=== PATIENT | female | born 1940 | race Caucasian/White ===

== ENCOUNTER 2018-08-15 12:59 | Emergency (ER) | payer MEDICARE, OTHER ==
--- OUTSIDE RECORDS SUMMARY | 2018-08-15 13:29 | XMS REPORT ---
:1940 External Reference #:[id number] Author Organization [facility] Address [address] [address] Phone [phone] Care Team Providers Name Role Phone Marilu Black, RN MS SOFTWARE QUALITY TEST ENGINEER Care Team Information Car Dropper Unavailable Payers Type Date Identification Numbers Payment Provider Subscriber Medicare Primary Effective: Policy Number: Medicare Mallika Mathews 2010 [id number] Group Name: [facility] [address] PayID: [id number] [place] [address] [place] Policy Number: [id number] [place] Mathews PayID: [id number] [place] [address] Problems Date Description Provider Status Onset: 07/21/2012 Benign essential hypertension Marilu Black, RN MS SOFTWARE QUALITY TEST ENGINEER Active Social History Type Date Description Comments Marital Status ETOH Use Denies alcohol use Smoking Patient is a former smoker 30 YRS X 2PPD, QUIT 20 YRS AGO Daily Caffeine Consumes on average 3 cups of tea per day Daily Caffeine Consumes on average 1 cup of coffee per day General Hx Text 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 Allergies, Adverse Reactions, Alerts Date Description Reaction Status Severity Comments 07/21/2012 Penicillin active 07/21/2012 Compazine active 07/21/2012 Morphine active 07/21/2012 Sulfa Drugs active 04/05/2015 Azithromycin Urticaria active 08/04/2018 Olmesartan Medoxomil active Swelling, Electric Shocks In Whole Body Medications Medication Date Status Form Strength Qnty SIG Indications Ordering Provider Lorazepam 08/04 Active Tablets 0.5mg 120ta 1/2-1 tab F41.1 Sofia Scarlett bs every 6-8 Marilu hours dano Alcala RN MS needed for SOFTWARE QUALITY TEST ENGINEER anxiety Hydrochlorothiazi 07/21 Active Tablets 12.5mg 30tab 1 tablet I10 Sofia de s every Marilu morning, Fredrick RN MS with SOFTWARE QUALITY TEST ENGINEER olmesartan 40mg Diazepam 06/24 Active Tablets 10mg 2tabs One Tab 1/2 HR Marilu Prior To KHUSHI Alcala MS MRI, March SOFTWARE QUALITY TEST ENGINEER Repeat In 4 HRS X 1 Hydrocodone-Aceta 06/16 Active Tablets 10-325mg 30tab take /2-1 M25.511 Sofia min s tablet by Marilu mouth up C, RN MS to 4 times SOFTWARE QUALITY TEST ENGINEER daily as needed maximum daily dose of 4 per day Triamcinolone 05/27 Active Cream 0.1% 30gm apply to L20.89 Sha Blackonide affected Marilu area twice Fredrick, RN MS a day for SOFTWARE QUALITY TEST ENGINEER 2 weeks Shingrix 05/27 Active Suspension 50mcg 1unit one Z00.00 Rec s injection Marilu as Fredrick RN MS directed SOFTWARE QUALITY TEST ENGINEER Ventolin HFA 05/08 Active Aerosol 108(90Bas 8gm use three J45.20 Sofia e) times a Marilu mcg/Act day as Fredrick RN MS needed SOFTWARE QUALITY TEST ENGINEER Livalo 03/27 Active Tablets 4mg 90tab 1 by mouth E78.0 Sofia s every day Marilu Alcala, RN MS SOFTWARE QUALITY TEST ENGINEER E78.2 Spirometer, 06/27/2015 Active use tid dx R06.02 Sofia, Incentive chronic Marilu Alcala, bronchitis RN MS SOFTWARE QUALITY TEST ENGINEER Baby Aspirin 04/27/2015 Active Chewtabs 81mg 1 by mouth Sofia, every day Marilu Alcala, RN MS SOFTWARE QUALITY TEST ENGINEER Epipen 2-Tray 09/04/2014 Active Solution 0.3m 2uni as needed [place], Auto-Inject g/0. ts Shea Benitez MD Zolpidem 08/18/2014 Active Tablets 10mg 30ta 1 every night F51.8 Sofia Tartrate bs at bedtime as Marilu Alcala, needed sleep RN MS SOFTWARE QUALITY TEST ENGINEER G47.00 Gabapentin 07/21/2012 Active Tablets 600mg 360tabs one by mouth M54.2 Marilu Black four times a Fredrick RN MS SOFTWARE QUALITY TEST ENGINEER day M54.5 TENS Unit 07/21/2012 Active Back/Neck M54.2 Marilu Black, RN MS SOFTWARE QUALITY TEST ENGINEER M54.5 Estradiol Active Patches 0.1mg/24HR 24units apply 1 Sofia, Biweek patch to Marilu skin 2 times C, RN MS per week for SOFTWARE QUALITY TEST ENGINEER menopausal symptoms Meloxicam Active Tablets 7.5mg 180tabs take 1 to 2 Sofia, tablets by Marilu mouth every C, RN MS day SOFTWARE QUALITY TEST ENGINEER Hyzaar 07/29/2018 - Hx Tablets 100-12.5mg 30tabs One Daily I Sofia, 08/04/2018 For Blood 1 Marilu Pressure 0 C, RN MS SOFTWARE QUALITY TEST ENGINEER Olmesartan 07/21/2018 - Hx Tablets 40-12.5mg 90tabs one tab I Sofia, Medoxomil/Hydroch 08/04/2018 daily by 1 Marilu lorothiazide mouth for 0 C, RN MS blood SOFTWARE QUALITY TEST ENGINEER pressure Myrbetriq 05/08/2017 - Hx Tablets 25mg One Daily N Sofia, 05/27/2018 ER 24HR 3 Marilu 9 C, RN MS . SOFTWARE QUALITY TEST ENGINEER 4 6 Levaquin 04/29/2016 - Hx Tablets 500mg 7tabs one by mouth Macaanni, 05/22/2016 every day x Shea 7 days - MD Emmanuel Cheratussin ac 04/29/2016 - Hx Solution 100-10mg/5M 473ml 5-10 R Macadam, 05/22/2016 L milliliters 0 Shea four times a 5 MD Emmanuel day as needed cough Omeprazole 03/27/2016 - Hx Capsules 40mg 90caps 1 by mouth Tay Black, 08/04/2018 DR every day 2 Marilu 1 C, RN MS . SOFTWARE QUALITY TEST ENGINEER 9 Lidoderm 03/27/2016 - Hx Patches 5% Sample apply patch Emmanuel Black, 05/08/2017 daily as 5 Marilu directed.galilea 4 C, RN MS ve on for 12 . SOFTWARE QUALITY TEST ENGINEER hours/day 6 only. may cut to fit tender area. Hydrocodone-Aceta 03/27/2016 - Hx Tablets 5-325mg 60tabs 1tab by Emmanuel Black minophen 05/08/2017 mouth every 5 Marilu 6 hours as 4 C, RN MS needed for . SOFTWARE QUALITY TEST ENGINEER pain 6 Cyclobenzaprine 03/27/2016 - Hx Tablets 10mg 45tabs take 1/2-1 M [place] , HCL 05/08/2017 tablet by 5 Marilu mouth every 4 C, RN MS night at . SOFTWARE QUALITY TEST ENGINEER bedtime as 6 needed for muscle spasm Spiriva Respimat 09/05/2015 - Hx Aerosol 2.5mcg/Act 3units 2 R Sofia, 09/05/2015 inhalations 0 Marilu daily as 6 C, RN MS instructed . SOFTWARE QUALITY TEST ENGINEER 0 2 Anoro Ellipta 09/05/2015 - Hx Aerosol 62.5-25mcg/ Sample one R [place], 05/22/2016 Inh inhalation 0 Marilu once daily 6 C, RN MS . SOFTWARE QUALITY TEST ENGINEER 0 2 Medical Marijuana 06/27/2015 - Hx 3 [place], 06/27/2015 3 Marilu 8 C, RN MS . SOFTWARE QUALITY TEST ENGINEER 4 Prilosec 06/27/2015 - Hx Capsules 20mg 30caps 1 by mouth 5 [place], 03/27/2016 DR every day 3 Marilu otc 0 C, RN MS . SOFTWARE QUALITY TEST ENGINEER 1 1 Breo Ellipta 06/27/2015 - Hx Aerosol 200-25mcg/I R [place], 05/22/2016 nh 0 Marilu 6 C, RN MS . SOFTWARE QUALITY TEST ENGINEER 0 2 Diovan HCT 04/27/2015 - Hx Tablets 160-12.5mg 90tabs 1 by mouth I Sofia, 05/08/2017 every day 1 Marilu 0 C, RN MS SOFTWARE QUALITY TEST ENGINEER Zofran 04/05/2015 - Hx Tablets 4mg 30tabs 1 tab by Jas, 04/27/2015 mouth q6hr Trinh as needed MD Lucretia Levaquin 04/05/2015 - Hx Tablets 500mg 7tabs one by mouth Jas, 04/27/2015 every day x Trinh 7 days - DC MD Miroslava Boykin Aware of potential long QT, had baseline EKG, pls go ahead to fill Guaifenesin-Codei 04/02/2015 - Hx Syrup 100-10mg/5M 150cc 10 cc qHS Jas ne 04/27/2015 L prn Trinh Boykin MD Breo Ellipta 04/02/2015 - Hx Aerosol 100-25mcg/I 1units free samples Jas, 04/27/2015 nh 1 puff once Trinh daily MD Lucretia Azithromycin 04/02/2015 - Hx Tablets 250mg 6tabs 2 tabs 4 Jas, 04/05/2015 (500mg) on 6 Trinh day 1, then 6 MD Lucretia 1 tab . (250mg) by 0 mouth on day 2-5. Prednisone 04/02/2015 - Hx Tablets 10mg 55tabs 5 tabs for 5 4 Jas, 04/27/2015 days, 3 tabs 6 Trinh for 5 days, 6 MD Lucretia 2 tabs for 5 . days 1 tab 0 for 5 days Epipen 2-Tray 08/25/2014 - Hx Solution 0.3mg/0.3ML 1Pak inject as [place], 08/25/2014 Auto-Inje dircted for Marilu ct severe C, RN MS allergy SOFTWARE QUALITY TEST ENGINEER Epinephrine 08/25/2014 - Hx Solution 0.15mg/0.15 1units inject as Sofia, 09/04/2014 Auto-Inje ML dircted for Marilu ct severe C, RN MS allergy SOFTWARE QUALITY TEST ENGINEER Carisoprodol 08/18/2014 - Hx Tablets 350mg 90tabs 1 by mouth 3 M Sofia , 03/27/2016 times daily 5 Marilu as needed 4 C, RN MS for muscle . SOFTWARE QUALITY TEST ENGINEER spasm 5 Bupropion HCL ER 08/18/2014 - Hx Tablets 300mg 90tabs 1 by mouth F Sofia (XL) 05/27/2018 ER 24HR every day 3 Marilu 3 C, RN MS . SOFTWARE QUALITY TEST ENGINEER 0 Naproxen 08/18/2014 - Hx Tablets 500mg 180tabs 1 by mouth M Sofia, 05/08/2017 twice a day 5 Marilu as needed 4 C, RN MS . SOFTWARE QUALITY TEST ENGINEER 5 Proair HFA 08/18/2014 - Hx Aerosol 108(90Base) 1units 2 [place], 05/08/2017 mcg/Act inhalations Marilu by mouth C, RN MS three times SOFTWARE QUALITY TEST ENGINEER a day as needed for wheezing Ambien 07/10/2014 - Hx Tablets 10mg 5tabs 1 qHS prn 5 Jas, 08/18/2014 days Trinh emergency MD Lucretia supply Zofran 06/16/2014 - Hx Tablets 8mg 4tabs for nausea 7 Sofia, 04/05/2015 every 6 8 Marilu hours 7 C, RN MS . SOFTWARE QUALITY TEST ENGINEER 0 2 Wellbutrin XL 07/07/2013 - Hx Tablets 300mg 90tabs take one 2 Sofia, 08/18/2014 ER 24HR tablet by 9 Marilu mouth every 6 KHUSHI Alcala MS morning . SOFTWARE QUALITY TEST ENGINEER 3 1 [place] 04/13/2013 - Hx Tablets 10-325mg 40tabs 1 po q6hrs 7 Sofia, 07/07/2013 prn pain 2 Marilu 4 KHUSHI Alcala MS . SOFTWARE QUALITY TEST ENGINEER 2 723.1 Vagifem 03/24/2013 - Hx Tablets 10mcg 24tabs 2x/week prn 616.10 [place], 06/27/2015 Marilu Alcala RN MS SOFTWARE QUALITY TEST ENGINEER Estrace 03/24/2013 - Hx Tablets 1mg Twice Weekly 616.10 [place], 03/24/2013 Marilu Alcala RN MS SOFTWARE QUALITY TEST ENGINEER Nucynta 03/24/2013 - Hx Tablets 75mg 120tabs one every 6 M54.5 [facility], 03/27/2016 hours as Shea Benitez MD needed pain . G89.4 Vivelle-Dot 03/24/2013 - Hx Patches 0.075mg/24HR 24units 1 patch 616.10 [place], 03/27/2016 Biweek 2x/week Marilu Alcala RN MS SOFTWARE QUALITY TEST ENGINEER Macrodantin 07/22/2012 - Hx Capsules 50mg 14caps one tab [place], 03/24/2013 bid for 7 Marilu days. KHUSHI Aclala MS SOFTWARE QUALITY TEST ENGINEER Diovan 07/21/2012 - Hx Tablets 160mg 90tabs 1 po qd 401.1 [place], 04/27/2015 Marilu Alcala RN MS SOFTWARE QUALITY TEST ENGINEER Lidoderm 07/21/2012 - Hx Patches 5% 30units 2 patch 724.2 [place], 03/27/2016 12 hrs on Marilu /12 hours KHUSHI Alcala MS off SOFTWARE QUALITY TEST ENGINEER Ambien 07/21/2012 - Hx Tablets 10mg 30tabs one by 307.42 Jas, 08/18/2014 mouth Trinh every MD Lucretia night at bedtime as needed sleep Soma 07/21/2012 - Hx Tablets 350mg 90tabs 1 by 724.2 [place], 08/18/2014 mouth 3 Shea Benitez MD daily as needed for muscle spasm Sibley 07/21/2012 - Hx Tablets 10-325mg 180tabs 1 po 724.09 [place], 03/24/2013 q6hrs prn Marilu pain KHUSHI Alcala MS SOFTWARE QUALITY TEST ENGINEER Livalo 07/21/2012 - Hx Tablets 1mg 90tabs 1 po qd E78.0 Sofia, 03/27/2016 Marilu Alcala RN MS SOFTWARE QUALITY TEST ENGINEER Celebrex 07/21/2012 - Hx Capsules 200mg 30caps 1 po qd 723.1 [place], 08/18/2014 Marilu Alcala RN MS SOFTWARE QUALITY TEST ENGINEER 724.2 Vivelle-Dot 07/21/2012 - Hx Patches 24units 1 patch 616.10 Sofia, 03/24/2013 Biweek 2x/week Marilu Alcala RN MS SOFTWARE QUALITY TEST ENGINEER Cipro 07/21/2012 - Hx Tablets 250m 14tabs 1 po bid x 599.0 Sofia, 07/22/2012 g 7 days Marilu Alcala RN MS SOFTWARE QUALITY TEST ENGINEER Valsartan-Hydroc - Hx Tablets 160- 90tabs 1 by mouth I10 Sofia, hlorothiazide 07/21/2018 12.5 every day mg KHUSHI Truong MS [facility] Immunizations CPT Code Status Date Vaccine Lot # [id number] Given 09/03/2016 Influenza Vac, 3 Yrs & Older, Quadrivalent, Split, [place] Use 84[address] Given 09/05/2015 Influenza Vac, 3 Yrs & Older, Quadrivalent, Split, [id number] Im Use 11918 Given 07/06/2015 Prevnar 13 Pneumococal Conjugate Vaccine 90871 Given 01/05/2013 Zoster (Zostavax) 09598 Given 09/03/2012 Pneumococcal 23 Immunization Adult Or Immunosuppressed Patient 68160 Given 09/03/2012 Tdap (Adacel) Ages 7 And Above Only Vital Signs Date Vital Result Comment 08/04/2018 Weight 142.12 lb Heart Rate 80 /min BP Systolic 120 mmHg BP Diastolic 70 mmHg 07/21/2018 Weight 145.25 lb Heart Rate 86 /min BP Systolic 138 mmHg BP Diastolic 82 mmHg Height 59 inches 4'11" BMI (Body Mass Index) 29.3 kg/m2 06/16/2018 Weight 140.00 lb BP Systolic Sitting 120 mmHg BP Diastolic Sitting 78 mmHg Height 59 inches 4'11" BMI (Body Mass Index) 28.3 kg/m2 05/27/2018 Weight 148.00 lb Heart Rate 70 /min BP Systolic 128 mmHg BP Diastolic 73 mmHg Height 59 inches 4'11" BMI (Body Mass Index) 29.9 kg/m2 05/08/2017 Weight 144.00 lb Heart Rate 89 /min BP Systolic 134 mmHg BP Diastolic 74 mmHg Height 59 inches 4'11" BMI (Body Mass Index) 29.1 kg/m2 Right Visual Acuity Distance 20/20 Left Visual Acuity Distance 20/20 05/22/2016 Weight 144.38 lb Heart Rate 86 /min BP Systolic 126 mmHg BP Diastolic 75 mmHg Height 60 inches 5'0" BMI (Body Mass Index) 28.2 kg/m2 04/29/2016 Body Temperature 97.9 F Weight 151.38 lb Heart Rate 91 /min BP Systolic 130 mmHg BP Diastolic 88 mmHg Height 60 inches 5'0" BMI (Body Mass Index) 29.6 kg/m2 Urine Dipstick - Blood TRACE Urine Dipstick - Protein NEGATIVE Urine Dipstick - Glucose NEGATIVE Urine Dipstick - Leukocytes TRACE 03/27/2016 Weight 151.50 lb Height 60 inches 5'0" BMI (Body Mass Index) 29.6 kg/m2 09/05/2015 Weight 150.50 lb Heart Rate 69 /min BP Systolic 117 mmHg BP Diastolic 71 mmHg Height 60 inches 5'0" BMI (Body Mass Index) 29.4 kg/m2 06/27/2015 Weight 150.38 lb Heart Rate 89 /min BP Systolic 112 mmHg BP Diastolic 74 mmHg Height 60 inches 5'0" BMI (Body Mass Index) 29.4 kg/m2 04/27/2015 Weight 151.25 lb Heart Rate 67 /min BP Systolic 103 mmHg BP Diastolic 66 mmHg Height 60 inches 5'0" BMI (Body Mass Index) 29.5 kg/m2 04/05/2015 Weight 153.00 lb Heart Rate 71 /min BP Systolic 152 mmHg BP Diastolic 87 mmHg BP Systolic Recheck 130 mmHg BP Diastolic Recheck 93 mmHg Height 60 inches 5'0" BMI (Body Mass Index) 29.9 kg/m2 04/02/2015 Weight 155.00 lb Heart Rate 97 /min BP Systolic 153 mmHg BP Diastolic 91 mmHg Height 60 inches 5'0" BMI (Body Mass Index) 30.3 kg/m2 08/18/2014 Weight 146.38 lb Heart Rate 77 /min BP Systolic 123 mmHg BP Diastolic 76 mmHg Height 60 inches 5'0" BMI (Body Mass Index) 28.6 kg/m2 06/16/2014 Body Temperature 98.5 F Weight 151.50 lb Heart Rate 90 /min BP Systolic 138 mmHg BP Diastolic 84 mmHg Respiratory Rate 19 /min O2 % BldC Oximetry 98 % Urine Dipstick - Blood 3+ Urine Dipstick - Protein NEGATIVE Urine Dipstick - Glucose NEGATIVE 05/04/2014 Weight 146.00 lb Heart Rate 68 /min BP Systolic 114 mmHg BP Diastolic 66 mmHg Height 59.75 inches 4'11.75" BMI (Body Mass Index) 28.7 kg/m2 07/07/2013 Weight 148.00 lb Heart Rate 74 /min BP Systolic 116 mmHg BP Diastolic 76 mmHg 03/24/2013 Weight 153.38 lb Heart Rate 68 /min BP Systolic 144 mmHg BP Diastolic 92 mmHg Height 59.75 inches 4'11.75" BMI (Body Mass Index) 30.2 kg/m2 07/21/2012 Weight 160.00 lb Heart Rate 60 /min BP Systolic 106 mmHg BP Diastolic 71 mmHg Height 60 inches 5'0" BMI (Body Mass Index) 31.2 kg/m2 Results Test Date Test Result H/L Range Note CBC with Auto Diff-fcmg 07/21/2018 WBC 12.5 K/uL High 4.1-11.0 RBC 4.74 M/uL 4.00-5.40 Hemoglobin 14.6 gm/dL 12.0-16.0 Hematocrit 44.1 % 36.0-47.0 MCV 93.1 fL 80.0-97.0 MCH 30.7 pg 27.0-32.0 MCHC 33.0 g/dL 32.0-36.0 RDW 13.4 % 11.5-14.5 PLT Count 374 K/ul 140-400 MPV 8.1 FL 7.1-10.7 Neutrophil 87.1 % High 35.0-75.0 Lymphocyte 7.0 % Low 16.0-52.0 Monocyte 5.4 % 2.0-10.0 Eosinophil 0.3 % 0.0-5.0 Basophil 0.2 % 0.0-4.0 Abs Neutrophils 10.9 K/uL High 2.1-8.0 Abs Lymphocytes 0.9 K/uL 0.8-5.5 Abs Monocytes 0.7 K/uL 0.1-1.0 Abs Eosinophils 0.0 K/uL 0.0-0.5 Abs Basophils 0.0 K/uL 0.0-0.3 Comprehensive Met Panel-FCMG 05/27/2018 Sodium 140 mmol/L 135-146 1 Potassium 4.5 mmol/L 3.5-5.2 Chloride# 102 mmol/L 97-110 2 Carbon Dioxide 26 mmol/L 24-34 Glucose 91 mg/dL 70-105 BUN 23 mg/dL 6-26 Creatinine 1.0 mg/dL 0.5-1.4 Calcium 9.2 mg/dL 8.5-10.2 Total Protein 6.2 g/dL 6.0-8.0 Albumin 3.9 g/dL 3.6-4.9 Globulin 2.3 g/dL 2.0-3.5 A/G Ratio 1.7 Ratio 1.0-2.2 Total Bilirubin 0.4 mg/dL 0.1-1.3 Alkaline Phosphatase 69 U/L 24-140 Alt 17 U/L 3-42 Ast 23 U/L 8-42 Maria Teresa Egfr >60 >60 3 Non Maria Teresa Egfr 56 Low >60 4 Anion Gap 12 mmol/L 5-15 5 CBC with Auto Diff-fcmg 05/27/2018 WBC 8.9 K/uL 4.1-11.0 RBC 4.69 M/uL 4.00-5.40 Hemoglobin 14.4 gm/dL 12.0-16.0 Hematocrit 43.4 % 36.0-47.0 MCV 92.4 fL 80.0-97.0 MCH 30.8 pg 27.0-32.0 MCHC 33.3 g/dL 32.0-36.0 RDW 13.1 % 11.5-14.5 PLT Count 429 K/ul High 140-400 MPV 7.7 FL 7.1-10.7 Neutrophil 62.8 % 35.0-75.0 Lymphocyte 23.7 % 16.0-52.0 Monocyte 9.6 % 2.0-10.0 Eosinophil 3.2 % 0.0-5.0 Basophil 0.7 % 0.0-4.0 Abs Neutrophils 5.6 K/uL 2.1-8.0 Abs Lymphocytes 2.1 K/uL 0.8-5.5 Abs Monocytes 0.9 K/uL 0.1-1.0 Abs Eosinophils 0.3 K/uL 0.0-0.5 Abs Basophils 0.1 K/uL 0.0-0.3 Laboratory test finding 05/27/2018 TSH 1.86 uIU/mL 0.35-4.94 Lipid 05/27/2018 Cholesterol 171 mg/dL 50-199 Triglycerides 158 mg/dL 30-200 HDL 61 mg/dL 35-85 6 Chol/ HDL Ratio 2.8 ratio Low 3.7-5.6 VLDL 32 mg/dL High 2-29 LDL (Calc) 79 mg/dL 20-99 7 CBC With Auto Diff 05/14/2017 WBC 7.2 K/uL 4.1-11.0 RBC 4.52 M/uL 4.00-5.40 Hemoglobin 14.5 gm/dL 12.0-16.0 Hematocrit 43.0 % 36.0-47.0 MCV 95.2 fL 80.0-97.0 MCH 32.0 pg 27.0-32.0 MCHC 33.6 g/dL 32.0-36.0 RDW 13.1 % 11.5-14.5 PLT Count 339 K/ul 140-400 Neutrophil 53.9 % 35.0-75.0 Lymphocyte 27.3 % 16.0-52.0 Monocyte 13.3 % High 2.0-10.0 Eosinophil 4.3 % 0.0-5.0 Basophil 1.2 % 0.0-4.0 Abs Neutrophils 3.9 K/uL 2.1-8.0 Abs Lymphocytes 2.0 K/uL 0.8-5.5 Abs Monocytes 0.9 K/uL 0.1-1.0 Abs Eosinophils 0.3 K/uL 0.0-0.5 Abs Basophils 0.1 K/uL 0.0-0.3 Laboratory test finding 05/14/2017 TSH 1.95 uIU/mL 0.35-4.94 Lipid 05/14/2017 Cholesterol 178 mg/dL 50-199 Triglycerides 122 mg/dL 30-200 HDL 63 mg/dL 35-85 8 Chol/ HDL Ratio 2.8 ratio Low 3.7-5.6 VLDL 24 mg/dL 2-29 LDL (Calc) 91 mg/dL 20-99 9 Comprehensive Metabolic (CMP) 05/14/2017 Rejected Test Reason Cancelled Comprehensive Met Panel-FCMG 05/14/2017 Sodium 140 mmol/L 135-146 10 Potassium 5.1 mmol/L 3.5-5.2 Chloride# 104 mmol/L 97-110 11 Carbon Dioxide 25 mmol/L 24-34 Glucose 99 mg/dL 70-105 BUN 24 mg/dL 6-26 Creatinine 1.0 mg/dL 0.5-1.4 Calcium 8.6 mg/dL 8.5-10.2 Total Protein 5.8 g/dL Low 6.0-8.0 Albumin 3.5 g/dL Low 3.6-4.9 Globulin 2.3 g/dL 2.0-3.5 A/G Ratio 1.5 Ratio 1.0-2.2 Total Bilirubin 0.3 mg/dL 0.1-1.3 Alkaline Phosphatase 65 U/L 24-140 Alt 18 U/L 3-42 Ast 20 U/L 8-42 Maria Teresa Egfr >60 >60 12 Non Maria Teresa Egfr 57 Low >60 13 Anion Gap 16 mmol/L 7-16 14 Laboratory test 04/29/2016 Urine Culture Microbiology res <SEE 15 finding NOTE> CBC With Auto Diff 03/27/2016 WBC 9.9 K/uL 4.1-11.0 RBC 4.81 M/uL 4.00-5.40 Hemoglobin 14.9 gm/dL 12.0-16.0 Hematocrit 44.1 % 36.0-47.0 MCV 91.9 fL 80.0-97.0 MCH 30.9 pg 27.0-32.0 MCHC 33.7 g/dL 32.0-36.0 RDW 13.2 % 11.5-14.5 PLT Count 360 K/ul 140-400 Neutrophil 66.9 % 35.0-75.0 Lymphocyte 19.7 % 16.0-52.0 Monocyte 9.4 % 2.0-10.0 Eosinophil 3.4 % 0.0-5.0 Basophil 0.6 % 0.0-4.0 Abs Neutrophils 6.6 K/uL 2.1-8.0 Abs Lymphocytes 1.9 K/uL 0.8-5.5 Abs Monocytes 0.9 K/uL 0.1-1.0 Abs Eosinophils 0.3 K/uL 0.0-0.5 Abs Basophils 0.1 K/uL 0.0-0.3 Laboratory test finding 03/27/2016 Lipase 12 U/L 11-82 Amylase 33 U/L 29-103 Lipid 03/27/2016 Cholesterol 177 mg/dL 50-199 Triglycerides 98 mg/dL 30-200 HDL 54 mg/dL 35-85 16 Chol/ HDL Ratio 3.3 ratio Low 3.7-5.6 VLDL 20 mg/dL 2-29 LDL (Calc) 103 mg/dL High 20-99 17 Comprehensive Metabolic (CMP) 03/27/2016 Sodium 138 mmol/L 134-142 Potassium 4.3 mmol/L 3.5-5.2 Chloride 105 mmol/L 97-109 Carbon Dioxide 27 mmol/L 24-34 Glucose 93 mg/dL 70-105 BUN 16 mg/dL 6-26 Creatinine 0.9 mg/dL 0.5-1.4 Calcium 9.0 mg/dL 8.5-10.2 Total Protein 6.3 g/dL 6.0-8.0 Albumin 3.9 g/dL 3.6-4.9 Globulin 2.4 g/dL 2.0-3.5 A/G Ratio 1.6 Ratio 1.0-2.2 Total Bilirubin 0.4 mg/dL 0.1-1.3 Alkaline Phosphatase 60 U/L 24-140 Alt 16 U/L 3-42 Ast 21 U/L 8-42 Anion Gap 10 mmol/L 6-14 Maria Teresa Egfr >60 >60 18 Non Maria Teresa Egfr 58 Low >60 19 Laboratory test finding 06/27/2015 Vit D,25 Hydroxy 61 ng/mL 31-100 CBC With Auto Diff 06/27/2015 WBC 7.3 K/uL 4.1-11.0 RBC 4.73 M/uL 4.00-5.40 Hemoglobin 15.3 gm/dL 12.0-16.0 Hematocrit 44.6 % 36.0-47.0 MCV 94.3 fL 80.0-97.0 MCH 32.3 pg High 27.0-32.0 MCHC 34.2 g/dL 32.0-36.0 RDW 13.3 % 11.5-14.5 PLT Count 344 K/ul 140-400 Neutrophil 56.8 % 35.0-75.0 Lymphocyte 22.9 % 16.0-52.0 Monocyte 15.3 % High 2.0-10.0 Eosinophil 3.9 % 0.0-5.0 Basophil 1.1 % 0.0-4.0 Abs Neutrophils 4.2 K/uL 2.1-8.0 Abs Lymphocytes 1.7 K/uL 0.8-5.5 Abmon 1.1 K/uL High 0.1-1.0 Abs Eosinophils 0.3 K/uL 0.0-0.5 Abs Basophils 0.1 K/uL 0.0-0.3 Laboratory test finding 06/27/2015 TSH 2.96 uIU/mL 0.35-4.94 Lipid 06/27/2015 Cholesterol 252 mg/dL High 50-199 Triglycerides 155 mg/dL 30-200 HDL 58 mg/dL 35-85 20 Chol/ HDL Ratio 4.3 ratio 3.7-5.6 VLDL 31 mg/dL High 2-29 LDL (Calc) 163 mg/dL High 20-99 21 Comprehensive Metabolic (CMP) 06/27/2015 Sodium 136 mmol/L 134-142 Potassium 4.3 mmol/L 3.5-5.2 Chloride 99 mmol/L 97-109 Carbon Dioxide 29 mmol/L 24-34 Glucose 97 mg/dL 70-105 BUN 19 mg/dL 6-26 Creatinine 1.0 mg/dL 0.5-1.4 Calcium 9.2 mg/dL 8.5-10.2 Total Protein 6.5 g/dL 6.0-8.0 Albumin 4.1 g/dL 3.6-4.9 Globulin 2.4 g/dL 2.0-3.5 A/G Ratio 1.7 Ratio 1.0-2.2 Total Bilirubin 0.4 mg/dL 0.1-1.3 Alkaline Phosphatase 75 U/L 24-140 Alt 21 U/L 3-42 Ast 26 U/L 8-42 Anion Gap 12 mmol/L 6-14 Maria Teresa Egfr >60 >60 22 Non Maria Teresa Egfr 54 Low >60 23 Laboratory test finding 06/27/2015 Esr 12 mm/hr 0-20 Iron Panel 06/27/2015 Iron, Total 66 g/dL 50-170 Transferrin 269.7 mg/dL 203.0-362.0 Tibc (calc) 378 g/dL 261-478 % Iron Saturation 17.5 % 13.0-45.0 C Diff Toxin B/PCR-RL 04/05/2015 Specimen Description STOOL C Diff Toxin B NEGATIVE (Neg) 027 Nap1 B1 NEGATIVE (Neg) Comment NOTE: IF REFLEX <SEE NOTE> 24 Stool Panel 04/05/2015 Enteric Pathogen Cul SEE NOTE 25 Giard/Cryptosp Exam SEE NOTE 26 Stool For Leukocytes NO FECAL LEUKOCY <SEE NOTE> (STLN) 27 Giardia /Crypto Antigen SEE NOTE 28 Comprehensive Metabolic (CMP) 06/16/2014 Sodium 141 mmol/L 134-142 29 Potassium 3.4 mmol/L Low 3.5-5.2 29 Chloride 109 mmol/L 97-109 29 Carbon Dioxide 27 mmol/L 24-34 29 Glucose 93 mg/dL 70-105 29 BUN 17 mg/dL 6-26 29 Creatinine 0.8 mg/dL 0.5-1.4 29 Calcium 8.8 mg/dL 8.5-10.2 29 Total Protein 5.7 g/dL Low 6.0-8.0 29 Albumin 3.6 g/dL 3.6-4.9 29 Globulin 2.1 g/dL 2.0-3.5 29 A/G Ratio 1.7 Ratio 1.0-2.2 29 Total Bilirubin 0.3 mg/dL 0.1-1.3 29 Alkaline Phosphatase 73 U/L 24-140 29 Alt 19 U/L 3-42 29 Ast 22 U/L 8-42 29 Anion Gap 8 mmol/L 6-14 29 Maria Teresa Egfr >60 >60 29, 30 Non Maria Teresa Egfr >60 >60 29, 31 Laboratory test finding 06/16/2014 Lipase 11 U/L 11-82 29 Amylase 24 U/L Low 29-103 29 Magnesium 1.9 mg/dL 1.5-2.7 29 Laboratory test finding 06/16/2014 H Pylori AB Igg 0.45 U/mL (<0.90) 29 , 32 CBC With Auto Diff 06/16/2014 WBC 9.3 K/uL 4.1-11.0 29 RBC 4.07 M/uL 4.00-5.40 29 Hemoglobin 13.0 gm/dL 12.0-16.0 29 Hematocrit 38.1 % 36.0-47.0 29 MCV 93.5 fL 80.0-97.0 29 MCH 31.9 pg 27.0-32.0 29 MCHC 34.1 g/dL 32.0-36.0 29 RDW 13.3 % 11.5-14.5 29 PLT Count 283 K/ul 140-400 29 Neutrophil 70.6 % 35.0-75.0 29 Lymphocyte 16.3 % 16.0-52.0 29 Monocyte 9.4 % 2.0-10.0 29 Eosinophil 2.9 % 0.0-5.0 29 Basophil 0.8 % 0.0-4.0 29 Abs Neutrophils 6.5 K/uL 2.1-8.0 29 Abs Lymphocytes 1.5 K/uL 0.8-5.5 29 Abmon 0.9 K/uL 0.1-1.0 29 Abs Eosinophils 0.3 K/uL 0.0-0.5 29 Abs Basophils 0.1 K/uL 0.0-0.3 29 Laboratory test finding 06/16/2014 Cytology Fluid Specimen SEE NOTE 29 , 33 Rout Urine W/ Micro -RL 06/16/2014 Color YELLOW 29 Appearance TURBID 29 Spec Grav Urine 1.028 (1.003-1.030) 29 PH Urine 5.5 (5.0-7.5) 29 Leuk Esterase NEGATIVE (Neg) 29 Nitrite Urine NEGATIVE (Neg) 29 Protein Urine NEGATIVE (Neg) 29 Glucose Urine NEGATIVE (Neg) 29 Ketone Urine NEGATIVE (Neg) 29 Urobilinogen 0.2 mg/dL (0-1.0) 29 Bilirubin Urine NEGATIVE (Neg) 29 Blood/HGB Urine 2+ (Neg) 29 Urine WBC NONE SEEN [HPF] (0-5) 29 Urine RBC NONE SEEN [HPF] (0-2) 29 Caox Crystals 1+ [HPF] 29, 34 Laboratory test finding 07/21/2012 Urine Culture Microbiology res <SEE 35, 36 NOTE> 1 Updated reference range on new analyzer 2 Updated reference range on new analyzer 3 Concerning GFR Guidelines for Americans: Normal function or mild renal disease, if clinically at risk: >/=60 mL/min Moderately decreased: 30-59 Severely decreased: 15-29 Renal failure: <15 4 Concerning GFR Guidelines: Normal function or mild renal disease, if clinically at risk: >/=60 mL/min Moderately decreased: 30-59 Severely decreased: 15-29 Renal failure: <15 Glomerular Filtration Rate (GFR) is estimated based on the MDRD equation, which assumes a steady state for creatinine as recommended by the National Kidney Disease Education Program in conjunction with the National Institutes of Health and the National Kidney Foundation. Clinical conditions in which it may be necessary to measure GFR by using clearance methods include extremes of age and body size, severe malnutrition or obesity, diseases of skeletal muscle, paraplegia or quadriplegia, vegetarian diet, rapidly changing kidney function, and calculation of the dose of potentially toxic drugs that are excreted by the kidneys. 5 Updated Reference Range 6 Per NCEP ATP III Guidelines: Results lower than 40 mg/dL are suggestive of increased risk for coronary artery disease. Results > or=to 60 mg/dL are considered a negative risk factor. 7 Per NCEP ATP III Guidelines: Normal Population <130 Patients with medical conditions: CHD/DM Optimal: <100 Borderline high: 130-159 High: 160-189 Very high: >189 8 Per NCEP ATP III Guidelines: Results lower than 40 mg/dL are suggestive of increased risk for coronary artery disease. Results > or=to 60 mg/dL are considered a negative risk factor. 9 Per NCEP ATP III Guidelines: Normal Population <130 Patients with medical conditions: CHD/DM Optimal: <100 Borderline high: 130-159 High: 160-189 Very high: >189 10 Updated reference range on new analyzer 11 Updated reference range on new analyzer 12 Concerning GFR Guidelines for Americans: Normal function or mild renal disease, if clinically at risk: >/=60 mL/min Moderately decreased: 30-59 Severely decreased: 15-29 Renal failure: <15 13 Concerning GFR Guidelines: Normal function or mild renal disease, if clinically at risk: >/=60 mL/min Moderately decreased: 30-59 Severely decreased: 15-29 Renal failure: <15 Glomerular Filtration Rate (GFR) is estimated based on the MDRD equation, which assumes a steady state for creatinine as recommended by the National Kidney Disease Education Program in conjunction with the National Institutes of Health and the National Kidney Foundation. Clinical conditions in which it may be necessary to measure GFR by using clearance methods include extremes of age and body size, severe malnutrition or obesity, diseases of skeletal muscle, paraplegia or quadriplegia, vegetarian diet, rapidly changing kidney function, and calculation of the dose of potentially toxic drugs that are excreted by the kidneys. 14 Updated reference range on new analyzer 15 Microbiology results SOURCE URINE FINAL RESULT No growth 16 Per NCEP ATP III Guidelines: Results lower than 40 mg/dL are suggestive of increased risk for coronary artery disease. Results > or=to 60 mg/dL are considered a negative risk factor. 17 Per NCEP ATP III Guidelines: Normal Population <130 Patients with medical conditions: CHD/DM Optimal: <100 Borderline high: 130-159 High: 160-189 Very high: >189 18 Concerning GFR Guidelines for Americans: Normal function or mild renal disease, if clinically at risk: >/=60 mL/min Moderately decreased: 30-59 Severely decreased: 15-29 Renal failure: <15 19 Concerning GFR Guidelines: Normal function or mild renal disease, if clinically at risk: >/=60 mL/min Moderately decreased: 30-59 Severely decreased: 15-29 Renal failure: <15 Glomerular Filtration Rate (GFR) is estimated based on the MDRD equation, which assumes a steady state for creatinine as recommended by the National Kidney Disease Education Program in conjunction with the National Institutes of Health and the National Kidney Foundation. Clinical conditions in which it may be necessary to measure GFR by using clearance methods include extremes of age and body size, severe malnutrition or obesity, diseases of skeletal muscle, paraplegia or quadriplegia, vegetarian diet, rapidly changing kidney function, and calculation of the dose of potentially toxic drugs that are excreted by the kidneys. 20 Per NCEP ATP III Guidelines: Results lower than 40 mg/dL are suggestive of increased risk for coronary artery disease. Results > or=to 60 mg/dL are considered a negative risk factor. 21 Per NCEP ATP III Guidelines: Normal Population <130 Patients with medical conditions: CHD/DM Optimal: <100 Borderline high: 130-159 High: 160-189 Very high: >189 22 Concerning GFR Guidelines for Americans: Normal function or mild renal disease, if clinically at risk: >/=60 mL/min Moderately decreased: 30-59 Severely decreased: 15-29 Renal failure: <15 23 Concerning GFR Guidelines: Normal function or mild renal disease, if clinically at risk: >/=60 mL/min Moderately decreased: 30-59 Severely decreased: 15-29 Renal failure: <15 Glomerular Filtration Rate (GFR) is estimated based on the MDRD equation, which assumes a steady state for creatinine as recommended by the National Kidney Disease Education Program in conjunction with the National Institutes of Health and the National Kidney Foundation. Clinical conditions in which it may be necessary to measure GFR by using clearance methods include extremes of age and body size, severe malnutrition or obesity, diseases of skeletal muscle, paraplegia or quadriplegia, vegetarian diet, rapidly changing kidney function, and calculation of the dose of potentially toxic drugs that are excreted by the kidneys. 24 NOTE: IF REFLEX CULTURE FOR KLEBSIELLA OXYTOCA IS CLINICALLY INDICATED, PLEASE CONTACT THE MICROBIOLOGY LABORATORY ([phone]) WITHIN 3 DAYS OF THIS REPORT. Unless otherwise specified, testing performed by [facility] [address] [place] [address] [id number] 25 SPECIMEN DESCRIPTION STOOL SPECIAL REQUESTS NONE CULTURE RESULTS NO SALMONELLA OR SHIGELLA ISOLATED. NEGATIVE FOR CAMPYLOBACTER COLI/JEJUNI BY IMMUNO ASSAY. NO SHIGA LIKE (NIDIA) TOXIN DETECTED BY IMMUNOASS AY. REPORT STATUS FINAL 04/07/2015 Unless otherwise specified, testing performed by [facility] [address] [place] [address] [id number] 26 SPECIMEN DESCRIPTION STOOL SPECIAL REQUESTS NONE RESULT NEGATIVE FOR GIARDIA BY DFA NEGATIVE FOR CRYPTOSPORIDIUM BY DFA STOOL SPECIMEN SCREENED FOR THE PRESENCE OF GIARDIA LAMBLIA AND CRYPTOSPORIDIUM PARVUM ONLY. FOR PATIENTS FROM OR WITH A HISTORY OF TRAVEL TO A DEVELOPING COUNTRY, OR WHO HAVE PERSISTANT SYMPTOMS AND/OR ARE IMMUNOCOMPROMISED, CALL MICROBIOLOGY TO REQUEST THE REFLEX TEST OAP FOR A COMPREHENSIVE MICROSCOPIC EXAMINATION. SPECIMENS ARE SAVED IN FIXATIVE AND HELD FOR 7 DAYS FROM THE REPORT DATE TO ALLOW THESE TESTS TO BE ADDED ON. REPORT STATUS FINAL 04/06/2015 Unless otherwise specified, testing performed by [facility] [address] [place] [address] 27 NO FECAL LEUKOCYTES SEEN PERFORMED AT [address] [place] [address] Unless otherwise specified, testing performed by [facility] [address] [place] [address] [id number] 28 SPECIMEN DESCRIPTION STOOL SPECIAL REQUESTS NONE RESULT NEGATIVE FOR GIARDIA ANTIGEN BY IMMUNOASSAY NEGATIVE FOR CRYPTOSPORIDIUM ANTIGEN BY IMMUNOAS SAY REPORT STATUS FINAL 04/06/2015 Unless otherwise specified, testing performed by [facility] [address] [place] [address] [id number] 29 Fastin hours 30 Concerning GFR Guidelines for Americans: Normal function or mild renal disease, if clinically at risk: >/=60 mL/min Moderately decreased: 30-59 Severely decreased: 15-29 Renal failure: <15 31 Concerning GFR Guidelines: Normal function or mild renal disease, if clinically at risk: >/=60 mL/min Moderately decreased: 30-59 Severely decreased: 15-29 Renal failure: <15 Glomerular Filtration Rate (GFR) is estimated based on the MDRD equation, which assumes a steady state for creatinine as recommended by the National Kidney Disease Education Program in conjunction with the National Institutes of Health and the National Kidney Foundation. Clinical conditions in which it may be necessary to measure GFR by using clearance methods include extremes of age and body size, severe malnutrition or obesity, diseases of skeletal muscle, paraplegia or quadriplegia, vegetarian diet, rapidly changing kidney function, and calculation of the dose of potentially toxic drugs that are excreted by the kidneys. 32 < 0.90 NEGATIVE > 0.89 AND < 1.09 INDETERMINATE > 1.09 POSITIVE Unless otherwise specified, testing performed by [facility] [address] [place] [id number] [phone] [facility]. [address] [place] [address] 31636 MISCELLANEOUS CYTOLOGY REPORT Accession Number: [id number] Source of Specimen(s): A: Urine, Voided Clinical Diagnosis and History: Gross Description: Urine, Voided: 3 cc yellow fluid. Final Diagnosis: Specimen Adequacy Satisfactory Final Diagnosis NEGATIVE FOR MALIGNANCY Squamous cells with crystals and an occasional erythrocyte. Reported: 06/19/2014 Electronically Signed Out By Abhilash Hook MD Steeping Press Operator: Christa VARGHESE(ASCP) [facility] mwg Unless otherwise specified, testing performed by [facility] [address] [place] [address] [id number] 34 Unless otherwise specified, testing performed by [facility] [address] [place] [address] [id number] 35 This sample is drawn by:[facility] Microbiology results SOURCE MIDU FINAL RESULT No growth Procedures Date CPT Code Description Status Comment 05/27/2018 84458 Electrocardiogram Complete Completed 12/30/2016 Mammogram Completed 06/27/2015 34822 PFT W/O Bronchodilator Completed 06/27/2015 52350 Electrocardiogram Complete Completed 06/27/2015 Mammogram Completed HAS DONE IN [place] YEARLY 06/27/2015 Bone Mineral Density Test Completed DONE IN [place] 11/23/2014 Colonoscopy Completed IN [place] Encounters Type Date Location Provider CPT E/M Dx Office Visit 07/21/2018 11:40a Marilu Bush, KHUSHI RAZO 72635 M25.511 I10 E78.2 M54.5 Z23 Z68.29 Office Visit 06/16/2018 3:30p Marilu Bush RN [place] FNP 61136 M25.511 M25.551 Z68.28 Office Visit 05/27/2018 9:00a Marilu Bush RN MS FNP G0439 Z00.00 L20.89 I10 E78.2 K21.9 G47.00 E55.9 M54.5 Z13.89 Z68.29 Office Visit 05/08/2017 2:40p Marilu Bush RN [facility] G0439 Z00.00 M54.6 N39.46 R53.83 J45.20 E78.2 Office Visit 05/22/2016 1:00p Marilu Bush RN [facility] 20265 N39.42 Office Visit 04/29/2016 11:20[place] [address] R31.9 R05 J06.9 Office Visit 03/27/2016 11:40a Marilu Bush RN [facility] 37121 R10.11 M54.6 E78.2 Office Visit 09/05/2015 3:00p Marilu Bush RN [facility] 90736 Z79.891 G89.4 E78.2 D50.9 R06.02 Z23 Office Visit 06/27/2015 11:00a Marilu Bush RN [facility] G0439 V70.0 V58.69 338.4 530.11 V04.89 786.05 268.9 272.2 789.01 719.40 280.1 Office Visit 04/27/2015 1:40p Marilu Bush RN [facility] 28962 V58.69 338.4 401.1 Office Visit 04/05/2015 11:20[place] [address] 787.91 466.0 995.27 Office Visit 04/02/2015 11:20[place] [address] 466.0 Office Visit 08/18/2014 2:20p Marilu Bush RN [facility] 11176 V58.69 V49.9 724.2 307.49 Office Visit 06/16/2014 10:40a Marilu Bush RN [facility] 90604 787.02 789.06 599.0 723.1 Office Visit 05/04/2014 11:00a Marilu Bush RN [facility] 58200 296.31 401.1 V49.9 V58.69 Office Visit 07/07/2013 1:00p Marilu Bush, RN MS [employer] 35384 401.1 296.31 724.2 723.1 272.0 307.42 Office Visit 03/24/2013 1:00p Marilu Bush, RN MS [employer] TEST ENGINEER 29129 401.1 616.10 272.0 307.42 Office Visit 07/21/2012 2:00p Marilu Bush, RN MS [employer] QU[employer] TEST ENGINEER 81602 599.0 401.1 Plan of Care 08/04/2018 - Marilu Black, RN MS [id number] Essential (primary) hypertensionFollow up:ONE MONTH EPIFANIO PRINT CVSMiscellaneous:MONITOR BP A FEW TIMES WEEKLY AND LET ME KNOW THRU THE PORTAL EPIFANIO IF NEEDED IMMED IF ANY DIZZINESS!! BEGIN TO WEAN OFF VALSARTAN, 1/2 TAB WNPGWF00.1 Generalized anxiety disorderNew Medication:Lorazepam 0.5 mg
--- OUTSIDE RECORDS SUMMARY | 2018-08-15 13:29 | XMS REPORT ---
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 Payers Type Date Identification Numbers Payment Provider Subscriber Medicare Primary Effective: Policy Number: Medicare Mallika Mathews 2010 [id number] Group Name: [facility] [address] PayID: [id number] [place] [address] Medigap Part B Policy Number: [id number] [employer] Mathews PayID: [id number] [employer] [place] [address] Problems Date Description Provider Status Onset: 07/21/2012 Benign essential hypertension Marilu Black, RN MS [employer] [employer] Active Social History Type Date Description Comments Marital Status ETOH Use Denies alcohol use Smoking Patient is a former smoker 30 YRS X 2PPD, QUIT 20 YRS AGO Daily Caffeine Consumes on average 3 cups of tea per day Daily Caffeine Consumes on average 1 cup of coffee per day General Hx Text 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 Allergies, Adverse Reactions, Alerts Date Description Reaction Status Severity Comments 07/21/2012 Penicillin active 07/21/2012 Compazine active 07/21/2012 Morphine active 07/21/2012 Sulfa Drugs active 04/05/2015 Azithromycin Urticaria active Medications Medication Date Status Form Strength Qnty SIG Indications Ordering Provider Diazepam 06/24/ Active Tablets 10mg 2tabs One Tab Scarlett Black 1/2 HR Marilu Prior To KHUSHI Alcala MS MRI, March [place] [employer] Repeat In 4 HRS X 1 Hydrocodone-Jesse 06/16/ Active Tablets 10-325mg 30tab take 1/2-1 M25.511 Sofia taminophen 2017 s tablet by Marilu mouth up Fredrick RN MS to 4 times [place] daily as needed maximum daily dose of 4 per day Triamcinolone 05/27/ Active Cream 0.1% 30gm apply to L20.89 Sofia Acetonide 2017 affected Marilu area twice KHUSHI Alcala MS a day for [place] [employer] 2 weeks Shingrix 05/27/ Active Suspension 50mcg 1unit one Z00.00 Sofia 2017 Rec s injection Marilu as Fredrick RN MS directed [place] [employer] Ventolin HFA 05/08/ Active Aerosol 108(90Bas 8gm use three J45.20 Sofia 2017 e) times a Marilu mcg/Act day as KHUSHI Alcala MS needed [place] [employer] Livalo 03/27/ Active Tablets 4mg 90tab 1 by mouth E78.0 Sofia 2015 s every day Marilu Alcala RN MS [place] [employer] E78.2 Omeprazole 03/27/[address] 40mg 90caps 1 by mouth K21.9 Sofia, every day Marilu Alcala RN MS [place] [employer] Spirometer, 06/27/2015 Active use tid dx R06.02 Mendel Black chronic Marilu bronchitis KHUSHI Alcala MS [place] [employer] Baby Aspirin 04/27/2015 Active Chewtabs 81mg 1 by mouth Sofia, every day Marilu Alcala RN MS [place] [employer] Epipen 2-Tray 09/04/2014 Active Solution 0.3mg/0 2units as needed [place] Auto-Inject .3ML Shea Benitez MD Zolpidem 08/18/2014 Active Tablets 10mg 30tabs 1 every night F51.8 Sofia Tartrate at bedtime as Marilu needed sleep Fredrick RN MS [place] [employer] G47.00 Gabapentin 07/21/2012 Active Tablets 600mg 360tabs one by mouth M54.2 Marilu Black four times a KHUSHI Alcala MS [place] [employer] day M54.5 TENS Unit 07/21/2012 Active Back/Neck M54.2 Marilu Black, RN MS [employer] [employer] M54.5 Estradiol Active Patches 0.1mg/24HR 24units apply 1 Sofia Biweek patch to [facility] skin 2 times KHUSHI Alcala MS per week for [place] [employer] menopausal symptoms Meloxicam Active Tablets 7.5mg 180tabs take 1 to 2 Sofia, tablets by Marilu mouth every C, RN MS day [place] [employer] Valsartan-Hydroch Active Tablets 160-12.5mg 90tabs 1 by mouth I Sofia, lorothiazide every day 1 Marilu 0 C, RN MS [place] [employer] Myrbetriq 05/08/2017 - Hx Tablets 25mg One Daily N Sofia, 05/27/2018 ER 24HR 3 Marilu 9 C, RN MS . [place] [employer]ATE 4 6 Levaquin 04/29/2016 - Hx Tablets 500mg 7tabs one by mouth [place], 05/22/2016 every day x Shea 7 days - MD Emmanuel Cheratussin ac 04/29/2016 - Hx Solution 100-10mg/5M 473ml 5-10 R Milton, 05/22/2016 L milliliters 0 Shea four times a 5 MD Emmanuel day as needed cough Lidoderm 03/27/2016 - Hx Patches 5% Sample apply patch Emmanuel Black, 05/08/2017 daily as 5 Marilu directed.galilea 4 C, RN MS ve on for 12 . [place] MATE hours/day 6 only. may cut to fit tender area. Hydrocodone-Aceta 03/27/2016 - Hx Tablets 5-325mg 60tabs 1tab by Emmanuel Black minophen 05/08/2017 mouth every 5 Marilu 6 hours as 4 C, RN MS needed for . [place] [employer] pain 6 Cyclobenzaprine 03/27/2016 - Hx Tablets 10mg 45tabs take 1/2-1 Emmanuel Black , HCL 05/08/2017 tablet by 5 Marilu mouth every 4 C, RN MS night at . [place] [employer] bedtime as 6 needed for muscle spasm Spiriva Respimat 09/05/2015 - Hx Aerosol 2.5mcg/Act 3units 2 R Sofia, 09/05/2015 inhalations 0 Marilu daily as 6 C, RN MS instructed . [place] MATE 0 2 Anoro Ellipta 09/05/2015 - Hx Aerosol 62.5-25mcg/ Sample one R Sofia, 05/22/2016 Inh inhalation 0 Marilu once daily 6 C, RN MS . [place] [employer]ATE 0 2 Medical Marijuana 06/27/2015 - Hx 3 Sofia, 06/27/2015 3 Marilu 8 C, RN MS . [place] MATE 4 Prilosec 06/27/2015 - Hx Capsules 20mg 30caps 1 by mouth 5 [place], 03/27/2016 DR every day 3 Marilu otc 0 C, RN MS . [place] MATE 1 1 Breo Ellipta 06/27/2015 - Hx Aerosol 200-25mcg/I R Sofia, 05/22/2016 nh 0 Marilu 6 C, RN MS . [place] MATE 0 2 Diovan HCT 04/27/2015 - Hx Tablets 160-12.5mg 90tabs 1 by mouth I Sofia, 05/08/2017 every day 1 Marilu 0 C, RN MS [place] Zofran 04/05/2015 - Hx Tablets 4mg 30tabs 1 tab by Jas, 04/27/2015 mouth q6hr Trinh as needed MD Lucretia Levaquin 04/05/2015 - Hx Tablets 500mg 7tabs one by mouth Jas, 04/27/2015 every day x Trinh 7 days - DC MD Marcello Boykinmaricardo Aware of potential long QT, had baseline EKG, pls go ahead to fill Guaifenesin-Codei 04/02/2015 - Hx Syrup 100-10mg/5M 150cc 10 cc qHS Jas ne 04/27/2015 L prn Trinh MD Lucretia Breo Ellipta 04/02/2015 - Hx Aerosol 100-25mcg/I [...] - Hx Solution 0.3mg/0.3ML 1Pak inject as Sofia, 08/25/2014 Auto-Inje dircted for Marilu ct severe C, RN MS allergy [place] [employer] Epinephrine 08/25/2014 - Hx Solution 0.15mg/0.15 1units inject as Sofia, 09/04/2014 Auto-Inje ML dircted for Marilu ct severe C, RN MS allergy [place] Carisoprodol 08/18/2014 - Hx Tablets 350mg 90tabs 1 by mouth 3 M Sofia , 03/27/2016 times daily 5 Marilu as needed 4 C, RN MS for muscle . [place] [employer] spasm 5 Bupropion HCL ER 08/18/2014 - Hx Tablets 300mg 90tabs 1 by mouth F Sofia, (XL) 05/27/2018 ER 24HR every day 3 Marilu 3 Fredrick, RN MS . [place] MATE 0 Naproxen 08/18/2014 - Hx Tablets 500mg 180tabs 1 by mouth M Sofia, 05/08/2017 twice a day 5 Marilu as needed 4 C, RN MS . [place] [employer] 5 Proair HFA 08/18/2014 - Hx Aerosol 108(90Base) 1units 2 [place], 05/08/2017 mcg/Act inhalations Marilu by mouth C RN MS three times [place] [employer] a day as needed for wheezing Ambien 07/10/2014 - Hx Tablets 10mg 5tabs 1 qHS prn 5 Jas, 08/18/2014 days Trinh Boykin MD supply Zofran 06/16/2014 - Hx Tablets 8mg 4tabs for nausea 7 [place], 04/05/2015 every 6 8 Marilu hours 7 Fredrick RN MS . [place] MATE 0 2 Wellbutrin XL 07/07/2013 - Hx Tablets 300mg 90tabs take one 2 , 08/18/2014 ER 24HR tablet by 9 Marliu mouth every 6 Fredrick, RN MS morning . [place] MATE 3 1 Saint Joe 04/13/2013 - Hx Tablets 10-325mg 40tabs 1 po q6hrs 7 [place], 07/07/2013 prn pain 2 Marilu 4 Fredrick, RN MS . [place] [employer] 2 723.1 Vagifem 03/24/2013 - Hx Tablets 10mcg 24tabs 2x/week prn 616.10 Sofia, 06/27/2015 Marilu Alcala RN MS [place] Estrace 03/24/2013 - Hx Tablets 1mg Twice Weekly 616.10 Sofia, 03/24/2013 Marilu Alcala RN MS [place] [employer] Nucynta 03/24/2013 - Hx Tablets 75mg 120tabs one every 6 M54.5 [place], 03/27/2016 hours as Shea Benitez MD needed pain . G89.4 Vivelle-Dot 03/24/2013 - Hx Patches 0.075mg/24HR 24units 1 patch 616.10 [place], 03/27/2016 Biweek 2x/week Marilu Alcala RN MS [place] [employer] Macrodantin 07/22/2012 - Hx Capsules 50mg 14caps one tab [place], 03/24/2013 bid for 7 Marilu days. KHUSHI Alcala MS [place] MATE Diovan 07/21/2012 - Hx Tablets 160mg 90tabs 1 po qd 401.1 [place], 04/27/2015 Marilu Alcala RN MS [employer] MATE Lidoderm 07/21/2012 - Hx Patches 5% 30units 2 patch 724.2 [place], 03/27/2016 12 hrs on Marilu /12 hours KHUSHI Alcala MS off [place] [employer] Ambien 07/21/2012 - Hx Tablets 10mg 30tabs one by 307.42 Jas, 08/18/2014 mouth Trinh every MD Lucretia night at bedtime as needed sleep Soma 07/21/2012 - Hx Tablets 350mg 90tabs 1 by 724.2 [facility], 08/18/2014 mouth 3 Shea Benitez MD daily as needed for muscle spasm Saint Joe 07/21/2012 - Hx Tablets 10-325mg 180tabs 1 po 724.09 [place], 03/24/2013 q6hrs prn Marilu Alcala RN MS [place] [employer] Livalo 07/21/2012 - Hx Tablets 1mg 90tabs 1 po qd E78.0 [place], 03/27/2016 Marilu Alcala RN MS [place] MATE Celebrex 07/21/2012 - Hx Capsules 200mg 30caps 1 po qd 723.1 [place], 08/18/2014 Marilu Alcala RN MS [place] MATE 724.2 Vivelle-Dot 07/21/2012 - Hx Patches 24units 1 patch 616.10 [place], 03/24/2013 Biweek 2x/week Marilu Alcala RN MS [place] MATE Cipro 07/21/2012 - Hx Tablets 250mg 14tabs 1 po bid x 7 599.0 [place], 07/22/2012 days Marilu Alcala RN MS [place] Immunizations CPT Code Status Date Vaccine Lot # [id number] Given 09/03/2016 Influenza Vac, 3 Yrs & Older, Quadrivalent, Split, Im Use 49588 Given 09/05/2015 Influenza Vac, 3 Yrs & Older, Quadrivalent, Split, [id number] Im Use 86231 Given 07/06/2015 Prevnar 13 Pneumococal Conjugate Vaccine 74665 Given 01/05/2013 Zoster (Zostavax) 63539 Given 09/03/2012 Pneumococcal 23 Immunization Adult Or Immunosuppressed Patient 51710 Given 09/03/2012 Tdap (Adacel) Ages 7 And Above Only Vital Signs Date Vital Result Comment 07/21/2018 Weight 145.25 lb Heart Rate 86 [...] Test Date Test Result H/L Range Note Comprehensive Met Panel-FCMG 05/27/2018 Sodium 140 mmol/L [...] Gap 16 mmol/L 7-16 14 Laboratory test finding 04/29/2016 Urine Culture Microbiology res <SEE 15 NOTE> Comprehensive Metabolic 03/27/2016 Sodium 138 mmol/L 134-142 (CMP) Potassium 4.3 mmol/L 3.5-5.2 Chloride 105 mmol/L [...] mmol/L 6-14 Maria Teresa Egfr >60 >60 16 Non Maria Teresa Egfr 58 Low >60 17 Lipid 03/27/2016 Cholesterol 177 mg/dL 50-199 Triglycerides 98 mg/dL 30-200 HDL 54 mg/dL 35-85 18 Chol/ HDL Ratio 3.3 ratio Low 3.7-5.6 VLDL 20 mg/dL 2-29 LDL (Calc) 103 mg/dL High 20-99 19 Laboratory test finding 03/27/2016 Lipase 12 U/L 11-82 Amylase 33 U/L 29-103 CBC With Auto Diff 03/27/2016 WBC 9.9 [...] 0.1 K/uL 0.0-0.3 Laboratory test finding 06/27/2015 Vit D,25 Hydroxy [...] SOURCE URINE FINAL RESULT No growth 16 Concerning GFR Guidelines for Americans: Normal function or mild renal disease, if clinically at risk: >/=60 mL/min Moderately decreased: 30-59 Severely decreased: 15-29 Renal failure: <15 17 Concerning GFR Guidelines: Normal function or mild [...] drugs that are excreted by the kidneys. 18 Per NCEP ATP III Guidelines: Results lower than 40 mg/dL are suggestive of increased risk for coronary artery disease. Results > or=to 60 mg/dL are considered a negative risk factor. 19 Per NCEP ATP III Guidelines: Normal Population <130 Patients with medical conditions: CHD/DM Optimal: <100 Borderline high: 130-159 High: 160-189 Very high: >189 20 Per NCEP ATP III Guidelines: Results [...] CLINICALLY INDICATED, PLEASE CONTACT THE MICROBIOLOGY LABORATORY ([phone]) WITHIN 3 DAYS OF THIS REPORT. Unless otherwise specified, testing performed by [facility] [address] [address] 25 SPECIMEN DESCRIPTION STOOL SPECIAL REQUESTS NONE CULTURE RESULTS NO SALMONELLA OR SHIGELLA ISOLATED. NEGATIVE FOR CAMPYLOBACTER COLI/JEJUNI BY IMMUNO ASSAY. NO SHIGA LIKE (NIDIA) TOXIN DETECTED BY IMMUNOASS AY. REPORT STATUS FINAL 04/07/2015 Unless otherwise specified, testing performed by [facility] [address] [place] [address] 26 SPECIMEN DESCRIPTION STOOL SPECIAL REQUESTS NONE [...] 04/06/2015 Unless otherwise specified, testing performed by [facility] [address] [place] [address] 27 NO FECAL LEUKOCYTES SEEN PERFORMED AT [address] [place] [address] Unless otherwise specified, testing performed by [facility] [address] [place] [address] 28 SPECIMEN DESCRIPTION STOOL SPECIAL REQUESTS NONE RESULT NEGATIVE FOR GIARDIA ANTIGEN BY IMMUNOASSAY NEGATIVE FOR CRYPTOSPORIDIUM ANTIGEN BY IMMUNOAS SAY REPORT STATUS FINAL 04/06/2015 Unless otherwise specified, testing performed by [facility] [address] [place] [address] 29 Fastin hours 30 Concerning GFR Guidelines [...] POSITIVE Unless otherwise specified, [facility] [address] [facility]. [address] [place] [address] MISCELLANEOUS CYTOLOGY REPORT Accession Number: [id number] Source of Specimen(s): A: Urine, Voided Clinical Diagnosis and History: Gross Description: Urine, Voided: 3 cc yellow fluid. Final Diagnosis: Specimen Adequacy Satisfactory Final Diagnosis NEGATIVE FOR MALIGNANCY Squamous cells with crystals and an occasional erythrocyte. Reported: 06/19/2014 Electronically Signed Out By Abhilash Hook MD Publications Distribution Clerk: Christa VARGHESE([facility]) [facility] mwg Unless otherwise specified, testing performed by [address] [address] Unless otherwise specified, testing performed by [address] [address] This sample is drawn by:MM 36 Microbiology results SOURCE MIDU FINAL RESULT No growth Procedures Date CPT Code Description Status Comment 05/27/2018 01523 Electrocardiogram Complete Completed 12/30/2016 Mammogram Completed 06/27/2015 15667 PFT W/O Bronchodilator Completed 06/27/2015 05971 Electrocardiogram Complete Completed 06/27/2015 Mammogram Completed HAS DONE IN [place] YEARLY 06/27/2015 Bone Mineral Density Test Completed DONE IN [place] 11/23/2014 Colonoscopy Completed IN [place] Encounters Type Date Location Provider CPT E/M Dx Office Visit 06/16/2018 3:30p Marilu Bush [place] [facility] [address] M25.511 M25.551 Z68.28 Office Visit 05/27/2018 9:00a Marilu Bush RN MS FNP G0439 Z00.00 L20.89 I10 E78.2 K21.9 G47.00 E55.9 M54.5 Z13.89 Z68.29 Office Visit 05/08/2017 2:40p Marilu Bush RN MS FNP G0439 Z00.00 M54.6 N39.46 R53.83 J45.20 E78.2 Office Visit 05/22/2016 1:00p Marilu Bush RN [facility] [address] N39.42 Office Visit 04/29/2016 11:20[place] [address] R31.9 R05 J06.9 Office Visit 03/27/2016 11:40a Marilu Bush RN [facility] [address]777 R10.11 M54.6 E78.2 Office Visit 09/05/2015 3:00p Marilu Bush RN [facility] 23018 Z79.891 G89.4 E78.2 D50.9 R06.02 Z23 Office Visit 06/27/2015 11:00a Marilu Bush RN [facility] G0439 V70.0 V58.69 338.4 530.11 V04.89 786.05 268.9 272.2 789.01 719.40 280.1 Office Visit 04/27/2015 1:40p Marilu Bush RN [facility] 35454 V58.69 338.4 401.1 Office Visit 04/05/2015 11:20[place] [address] 787.91 466.0 995.27 Office Visit 04/02/2015 11:20[place] [address] 466.0 Office Visit 08/18/2014 2:20p Marilu Bush RN [facility] 74352 V58.69 V49.9 724.2 307.49 Office Visit 06/16/2014 10:40a [facility] [address] 787.02 789.06 599.0 723.1 Office Visit 05/04/2014 11:00a [facility] [address]156 296.31 401.1 V49.9 V58.69 Office Visit 07/07/2013 1:00p Marilu Bush RN [facility] 68193 401.1 296.31 724.2 723.1 272.0 307.42 Office Visit 03/24/2013 1:00p Marilu Bush, RN [place] 18693 401.1 616.10 272.0 307.42 Office Visit 07/21/2012 2:00p Marilu Bush, RN [place] [address]87 599.0 401.1 Plan of Care No Information Available
--- OUTSIDE RECORDS SUMMARY | 2018-08-15 13:29 | XMS REPORT ---
:1940 External Reference #:[id number] Author Organization [facility] Address [address] [facility] [place] [address] Phone [phone] Care Team Providers Name Role Phone Marilu Black, PEDRO Primary Care Physician Unavailable Payers Type Date Identification Numbers Payment Provider Subscriber Medicare Primary Policy Number: [id number] Medicare Mallika Mathews PayID: [id number] [address] [place] [address] [place] Part B Policy Number: [id number] [employer] Mallika Mathews PayID: [id number] [address] [address] [place] [address] Problems Description No Information Family History Date Family Member(s) Problem(s) Comments General Diabetes General Heart Disease General Hypertension General Stroke General Cancer General Rheumatoid Arthritis Social History Type Date Description Comments Lives With Spouse Occupation Retired ETOH Use Occasionally consumes alcohol Smoking Patient is a former smoker Exercise Type/Frequency Exercises sporadically Allergies, Adverse Reactions, Alerts Date Description Reaction Status Severity Comments 07/20/2018 Penicillin hives active 07/20/2018 Morphine And Related itching active 07/20/2018 Compazine active Medications Medication Date Status Form Strength Qnty SIG Indications Ordering Provider Livalo 00/ Active Tablets 4mg Take 1 Unknown 0000 Tablet By Mouth Every Day Meloxicam / Active Tablets 7.5mg Take 1 To 2 Unknown 0000 Tablets By Mouth Every Day Omeprazole 00/ Active Capsules 40mg Take [address] Capsule By Mouth Every Day Zolpidem 0000/ Active Tablets 10mg Take 1 Unknown Tartrate 0000 Tablet By Mouth Every Night AT Bedtime as Needed For Sleep - MA Diazepam / Active Tablets 10mg Take 1 Unknown 0000 Tablet By Mouth 30 Minutes Prior To MRI, May Repeat In 4 Hours Estradiol / Active Patches 0.1mg/24HR Apply 1 Unknown 0000 Biweek Patch To Skin Two Times Per Week For Menopausal Symptoms Gabapentin / Active Tablets 600mg take one Unknown 0000 tablet by mouth three times a day Aspirin 81 Low / Active Chewtabs 81mg 1 by mouth Unknown Dose 0000 every day Magnesium / Active Tablets 400mg 1 by mouth Unknown 0000 every day Multivitamin / Active Tablets 1 by mouth Unknown Adult 0000 every day Marinol / Active Capsules 10mg Unknown 0000 Vital Signs Date Vital Result Comment 07/20/2018 Height 59 inches 4'11" Weight 146.00 lb BP Systolic 124 mmHg BP Diastolic 78 mmHg Respiratory Rate 20 /min Body Temperature 98.0 F Pain Level 8 BMI (Body Mass Index) 29.5 kg/m2 Results Description No Information Procedures Date CPT Code Description Status 07/20/2018 41429 Inject/Drain Joint/Bursa Major W/O US Completed Encounters Type Date Location Provider CPT E/M Dx Office Visit 07/20/2018 1:00p [facility] [place] [address] M19.011 C.M.A. M75.121 Plan of Care 07/20/2018 - Jeyson Smith, MDM19.011 Primary osteoarthritis, right shoulderNew Xrays:Shoulder Complete Bilat Min Of 2 IlwtqN24.121 Complete rotatr-cuff tear/ ruptr of r shoulder, not traumaFollow up:Follow up: as needed
[2018-08-15] MEDS ORDERED: NS 0.9% 1000 ML* 1,000 ML IV ONE (15:44)
--- NOTE | 2018-08-15 15:51 | ED ---
Palpitations / Dysrhythmia - HPI Summary HPI Summary: A 78 y/o female presents to ED c/o irregular fast heart beat and high blood pressure. In the ED room, the patient has a pulse of 94 BPM, O2 saturation of 99 % and blood pressure of 161/99. As per triage, "Pt has had several episodes in the past week that included confusion (single episode), chest pain a week ago ( took nitro and resolved), Pt on losartan and lorazapam (for anxiety). Pt today woke up and felt her heart was racing. She says she has an alyse on her phone that takes an ekg through her pulse and can dx afib. Pt states her pulse got up to 113. Pt states she took 2 lorazapam today and has not helped her". According to the patient, she has several incidents of irregular fast heart beat with HBP within the past 10 days. She stated that her pulse came up to 113 BPM a couple different times and her BP being 160/101. No swelling of legs. She noted that she has been using a cardiac alyse on the phone (which she downloaded this week). She stated that last Thursday, she experienced CP for 10 minutes in which her PCP placed on her on low-dose Lorazopam. She took Aspirin, Tums and NTG, but nothing seemed to alleviate the pain. A couple days before that when she was shopping for produce at [employer], she felt that her thinking started drifting as she could not process anything anymore. Additionally, she could not get the produce from the table to her cart. The episode lasted approximately 90 minutes in which her picked her up. En route to [facility], the patient noticed that the alyse called her HR, "Conditional Something". PMHx of HBP, controlled high cholesterol, denies any DM. FHx of CVA, aortic dissection, quad bypass and carotid byass. She was recent placed on a new medication. - History of Current Complaint Chief Complaint: EDDysrhythmPalp Time Seen by Provider: 08/15/18 13:49 Hx Obtained From: Patient Onset/Duration: Sudden Onset, Lasting Weeks, Still Present Timing: Intermittent Episodes Lasting: Severity Currently: None Character: Fast Aggravating: Nothing Alleviating: Nothing Associated Signs & Symptoms: Negative - Allergy/Home Medications Allergies/Adverse Reactions: Allergies Allergy/AdvReac Type Severity Reaction Status Date / Time Penicillins Allergy Hives Verified 08/15/18 15:52 prochlorperazine Allergy TONGUE Verified 08/15/18 15:52 [From Compazine] SWELLS MORPHINE Allergy Itching Uncoded 07/02/18 11:16 Home Medications: Home Medications Estradiol 1 tab PO DAILY 08/15/18 [History Confirmed 08/15/18] Losartan-Hctz 100-25 mg Tab 1 tab PO DAILY 08/15/18 [History Confirmed 08/15/18] Miralax 1 pkt PO DAILY 08/15/18 [History Confirmed 08/15/18] Multivitamin 1 tab PO DAILY 08/15/18 [History Confirmed 08/15/18] Nitroglycerin Tab 0.4 Mg* 1 tab PO DAILY PRN 08/15/18 [History Confirmed ] Ventolin HFA Inhaler* 2 puff INH DAILY 08/15/18 [History Confirmed 08/15/18] Wellbutrin TAB* 300 mg PO DAILY 08/15/18 [History Confirmed 08/15/18] PMH/Surg Hx/FS Hx/Imm Hx Endocrine/Hematology History: Denies: Hx Diabetes Cardiovascular History: Reports: Hx Hypertension Denies: Hx Congestive Heart Failure, Hx Pacemaker/ICD, Other Cardiovascular Problems/Disorders Respiratory History: Denies: Hx Chronic Obstructive Pulmonary Disease (COPD), Other Respiratory Problems/Disorders History: Denies: Hx Renal Disease Sensory History: Denies: Hx Hearing Aid Psychiatric History: Denies: Hx Panic Disorder - Surgical History Surgery Procedure, Year, and Place: CORTISONE SHOTS TO C SPINE, L SPINE FOR IMFLAMMATION. RIGHT SHOULDER ROTATOR CUFF REPAIR. LEFT SHOULDER 2 FAILED ROTATOR CUFF AND REVERSE REPAIR. GALLBLADDER/HYSTERECTOMY/TONSILS. REMOVED ABSCESS OFF KIDNEY. EXPLORATORY ABNOMINAL SURGERY Infectious Disease History: No Infectious Disease History: Denies: Traveled Outside the [place] in Last 30 Days - Family History Known Family History: Positive: Other - CVA - Social History Alcohol Use: None Substance Use Type: Reports: Marijuana Substance Use Comment - Amount & Last Used: Medical marijuana Hx Tobacco Use: No Smoking Status (MU): Former Smoker Review of Systems Negative: Fever Positive: Other - POSITIVE: HBP, tachycardia Negative: Edema - Legs All Other Systems Reviewed And Are Negative: Yes Physical Exam - Summary Physical Exam Summary: VITAL SIGNS: Reviewed. GENERAL: Patient is a well-developed and nourished female who is lying comfortable in the stretcher. Patient is not in any acute respiratory distress. HEAD AND FACE: No signs of trauma. No ecchymosis, hematomas or skull depressions. No sinus tenderness. EYES: PERRLA, EOMI x 2, No injected conjunctiva, no nystagmus. EARS: Hearing grossly intact. Ear canals and tympanic membranes are within normal limits. MOUTH: Oropharynx within normal limits. NECK: Supple, trachea is midline, no adenopathy, no JVD, no carotid bruit, no c- spine tenderness, neck with full ROM. CHEST: Symmetric, no tenderness at palpation LUNGS: Clear to auscultation bilaterally. No wheezing or crackles. CVS: Regular rate and rhythm, S1 and S2 present, no murmurs or gallops appreciated. ABDOMEN: Soft, non-tender. No signs of distention. No rebound no guarding, and no masses palpated. Bowel sounds are normal. EXTREMITIES: FROM in all major joints, no edema, no cyanosis or clubbing. NEURO: Alert and oriented x 3. No acute neurological deficits. Speech is normal and follows commands. SKIN: Dry and warm Triage Information Reviewed: Yes Vital Signs On Initial Exam: Initial Vitals Temp Pulse Resp BP Pulse Ox 97 F 109 18 160/104 100 08/15/18 13:06 08/15/18 13:06 08/15/18 13:06 08/15/18 13:06 08/15/18 13:06 Vital Signs Reviewed: Yes Diagnostics - Vital Signs Vital Signs Temp Pulse Resp BP Pulse Ox 08/15/18 15:28 99 25 100 08/15/18 15:27 96 14 161/99 99 08/15/18 13:06 97 F 109 18 160/104 100 - Laboratory Result Diagrams: 08/15/18 15:54 08/15/18 15:54 Lab Statement: Any lab studies that have been ordered have been reviewed, and results considered in the medical decision making process. - Radiology CXR Radiology Interpretation Completed By: Radiologist - No radiographic evidence of acute cardiopulmonary disease. ED PHYSICIAN REVIEWED THIS RADIOLOGY REPORT. - EKG 1315 Cardiac Rate: NL - 89 BPM EKG Rhythm: Sinus Rhythm EKG Interpretation: NO ST ELEVATIONS, NORMAL AXIS Course/Dx - Course Assessment/Plan: This patient is a 78-year-old female who presents to the emergency department with a chief complaint that the patient has been having these episodes of chest pain which is resolved by nitroglycerin. She also reports that she's been having episodes of palpitations and tachycardia. Therefore, she decided to come to the emergency department for further workup and management today. She has past medical history significant for insomnia, hypertension, and GERD. She has a strong family history for CVA and coronary artery disease and her family at her age. Blood work without any significant abnormality except for potassium level 3.4, glucose 109, 2 troponins 4 hours apart 0.00. Since the patient's symptoms have not returned the patient's continues to be asymptomatic and test RESULTS are normal the patient will be discharged home with follow-up with primary care physician. She will also will be referred to cardiology for further workup and management. Patient is hemodynamically stable alert and oriented 3. - Diagnoses Differential Diagnosis/HQI/PQRI: Positive: Coronary Artery Disease, Hypokalemia , Hypoxia, Paroxymal SVT, V-Tach Provider Diagnoses: Palpitations Discharge - Sign-Out/Discharge Documenting (check all that apply): Patient Departure - DISCHARGE - Discharge Plan Condition: Stable Disposition: HOME Patient Education Materials: Heart Palpitations (ED) Referrals: Marilu Black [Primary Care Provider] - Rickey Montana MD [Medical Doctor] - 3 Days Additional Instructions: FOLLOW UP WITH CARDIOLOGY IN 2-3 DAYS. FOLLOW UP WITH YOUR PRIMARY CARE PROVIDER WITHIN ONE WEEK FOR HIGH BLOOD PRESSURE NOTED TODAY. RETURN TO ED FOR ANY NEW OR WORSENING SYMPTOMS. - Billing Disposition and Condition Condition: STABLE Disposition: Home - Attestation Statements Document Initiated by Clint: Yes Documenting Scribe: Neptali Casper Provider For Whom Clint is Documenting (Include Credential): Yvon Mark MD Scribe Attestation: Neptali Sosa, scribed for Yvon Mark MD on 08/16/18 at 1138. Scribe Documentation Reviewed: Yes Provider Attestation: The documentation as recorded by the Neptali chan accurately reflects the service I personally performed and the decisions made by me, Yvon Mark MD
[2018-08-15 16:08] LABS: ABS Basophils 0 10^3/ul (0-0.2); ABS Eosinophils 0.1 10^3/ul (0-0.6); ABS Lymphocytes 1.5 10^3/ul (1.0-4.8); ABS Monocytes 1.1 10^3/ul (0-0.8); ABS Neutrophils 7.1 10^3/ul (1.5-7.7); ABS Nucleated RBC 0 10^3/ul; Eosinophil % 1.4 % (0-6); Hematocrit 41 % (35-47); Lymphocyte % 15.1 % (25-47); Mean Corpuscular HGB Conc 34 g/dl (31-36); Mean Corpuscular Hemoglobin 31 pg (27-31); Mean Corpuscular Volume 92 fL (80-97); Mean Platelet Volume 6.7 um3 (7.4-10.4); Nucleated Red Blood Cells % 0.1; Platelet Count 376 10^3/ul (150-450); Red Blood Count 4.49 10^6/ul (4.00-5.40); Red Cell Distribution Width 13 % (10.5-15); White Blood Count 9.9 10^3/ul (3.5-10.8)
[2018-08-15 16:20] LABS: INR 0.9 (0.77-1.02)
[2018-08-15 16:31] LABS: EGFR Non-African American 57.9 (>60)
[2018-08-15 17:11] LABS: Urine Appearance Clear; Urine Blood Negative (Negative); Urine Color Yellow; Urine Ketones Trace (Negative); Urine Protein Negative (Negative); Urine Specific Gravity 1.008 (1.010-1.030); Urine Urobilinogen Negative (Negative)
--- NOTE | 2018-08-15 17:37 | RAD ---
INDICATION: Tachycardia COMPARISON: Most recent comparison chest x-rays dated June 30, 2015 TECHNIQUE: PA and lateral views of the chest were obtained. FINDINGS: The heart and mediastinum are normal in size and contour. The lungs are grossly clear. There is no evidence of large pleural effusion. Visualized bones are normal for the patient's age. There is no radiographic evidence of free air beneath the diaphragm IMPRESSION: No radiographic evidence of acute cardiopulmonary disease.
[2018-08-15] MEDS ORDERED: Potassium Chlor TAB* 20 MEQ TAB.ER PO ONE (19:56)
[2018-08-15 20:13] VITALS: BP 139/90
== END 2018-08-15 20:13 | disposition home or self-care (01) ==
LOC: ED 12:59
DX: R00.2 Palpitations (principal); I10 Essential (primary) hypertension; Z87.891 Personal history of nicotine dependence
CPT/HCPCS: 36415; 71046; 80053; 81003; 82550; 82553; 83605; 83735; 83880; 84436; 84443; 84484; 85025; 85610; 85730; 93005; 96360; 99283; A9270-GY

== ENCOUNTER 2021-07-18 17:24 | Inpatient (IN) ==
[2021-07-18] MEDS ORDERED: HYDROmorphone 1 MG/1 ML SYRINGE IV SLOW PU ONE ×2 (19:09→22:12)
[2021-07-18 19:53] LABS: Hematocrit 34 % (35-47); Hemoglobin 11.8 g/dL (12.0-16.0); Mean Corpuscular HGB Conc 35 g/dL (31-36); Mean Corpuscular Hemoglobin 31 pg (27-31); Mean Corpuscular Volume 90 fL (80-97); Mean Platelet Volume 7.6 fL (7.4-10.4); Platelet Count 254 10^3/uL (150-450); Red Blood Count 3.78 10^6 /uL (3.70-4.87); Red Cell Distribution Width 14 % (10-15); White Blood Count 11.5 10^3/uL (3.5-10.8)
[2021-07-18 20:07] LABS: Albumin 3.7 g/dL (3.2-5.2); Albumin/Globulin Ratio 1.5 (1-3); C Reactive Protein 75.22 mg/L (<8.01); Calcium 8.2 mg/dL (8.6-10.3); EGFR African American 75.2 (>60); EGFR Non-African American 62.1 (>60); Globulin 2.4 g/dL (2-4); Potassium 3.5 mmol/L (3.5-5.0); Total Bilirubin 0.7 mg/dL (0.2-1.0); Total Protein 6.1 g/dL (6.4-8.9); Uric Acid 6.1 mg/dL (2.3-6.6)
[2021-07-19 01:43] LABS: Hematocrit 35 % (35-47); Hemoglobin 12.2 g/dL (12.0-16.0); Mean Corpuscular HGB Conc 35 g/dL (31-36); Mean Corpuscular Hemoglobin 31 pg (27-31); Mean Corpuscular Volume 90 fL (80-97); Mean Platelet Volume 7.4 fL (7.4-10.4); Platelet Count 246 10^3/uL (150-450); Red Blood Count 3.89 10^6 /uL (3.70-4.87); Red Cell Distribution Width 15 % (10-15); White Blood Count 10.1 10^3/uL (3.5-10.8)
[2021-07-19 01:59] LABS: Calcium 8.5 mg/dL (8.6-10.3); EGFR African American 61.3 (>60); EGFR Non-African American 50.7 (>60); Potassium 3.4 mmol/L (3.5-5.0)
[2021-07-19 02:13] LABS: Alcohol, S < 13 mg/dL (<13)
[2021-07-19 02:27] LABS: TSH Ultra Thyroid Stim Horm 7.23 mcIU/mL (0.34-5.60)
[2021-07-19 02:38] LABS: Vitamin B12 327 pg/mL (180-914)
[2021-07-19 02:58] LABS: ABS Basophils 0.1 10^3/ul (0-0.2); ABS Eosinophils 0.1 10^3/ul (0-0.6); ABS Lymphocytes 2.4 10^3/ul (1.0-4.8); ABS Monocytes 1.8 10^3/ul (0-0.8); ABS Neutrophils 5.6 10^3/ul (1.5-7.7); Erythrocyte Sed Rate 24 mm/Hr (0-29); Lymphocyte % 24.1 %
[2021-07-19] MEDS: ceFAZolin 1 GM ADVAN 1 GM in NS 0.9% 50 ML 50 ML IVPB SCH ×3 (03:48→21:18)
[2021-07-19] MEDS: Enoxaparin 40 MG/0.4 ML SYR SUBCUT SCH (03:48)
[2021-07-19 03:50] LABS: Urine Appearance Clear; Urine Bilirubin Negative (Negative); Urine Blood Negative (Negative); Urine Color Yellow; Urine Glucose Negative (Negative); Urine Ketones Trace (Negative); Urine Nitrite Negative (Negative); Urine Protein Negative (Negative); Urine Specific Gravity 1.015 (1.002-1.030); Urine Urobilinogen Negative (Negative)
[2021-07-19 04:14] LABS: Urine Benzodiazepine Screen None Detected (None Detect); Urine Cannabinoids Screen Presumptive Positive (None Detect); Urine Opiates Screen Presumptive Positive (None Detect)
[2021-07-19] MEDS ORDERED: HYDROmorphone 1 MG/1 ML SYRINGE IV SLOW PU ONE (07:20)
[2021-07-19] MEDS: Potassium Chlor 10 meq TAB PO SCH ×3 (09:34→21:25)
[2021-07-19] MEDS: diPHENhydraMINE 25 mg TAB PO PRN ×3 (09:48→19:44)
[2021-07-19 09:55] LABS: Magnesium 1.9 mg/dL (1.9-2.7)
[2021-07-19] MEDS: Pitavastatin 2 mg TAB (NF) PO SCH (10:32)
[2021-07-19 13:18] LABS: Folate > 20.00 ng/mL (5.90-24.80)
[2021-07-19] MEDS: HYDROcodone/ACETAMIN 5/325 mg TAB PO PRN (17:02)
[2021-07-19] MEDS ORDERED: Ondansetron 4 mg VIAL 2 MG/ML 2 ml VIAL IV PRN (23:48)
[2021-07-20] MEDS: ceFAZolin 1 GM ADVAN 1 GM in NS 0.9% 50 ML 50 ML IVPB SCH ×4 (05:41→20:47)
[2021-07-20] MEDS: Enoxaparin 40 MG/0.4 ML SYR SUBCUT SCH ×2 (08:09→08:36)
[2021-07-20] MEDS: Potassium Chlor 10 meq TAB PO SCH ×3 (08:09→20:50)
[2021-07-20] MEDS: Polyethylene Glycol 3350 17 GM PACKET PO PRN (08:09)
[2021-07-20] MEDS: Pitavastatin 2 mg TAB (NF) PO SCH (08:12)
[2021-07-20 08:40] LABS: ABS Basophils 0.1 10^3/ul (0-0.2); ABS Eosinophils 0.2 10^3/ul (0-0.6); ABS Lymphocytes 1.2 10^3/ul (1.0-4.8); ABS Monocytes 0.8 10^3/ul (0-0.8); ABS Neutrophils 6.6 10^3/ul (1.5-7.7); Eosinophil % 2.4 %; Hematocrit 36 % (35-47); Hemoglobin 12.5 g/dL (12.0-16.0); Lymphocyte % 13.5 %; Mean Corpuscular HGB Conc 35 g/dL (31-36); Mean Corpuscular Hemoglobin 32 pg (27-31); Mean Corpuscular Volume 89 fL (80-97); Mean Platelet Volume 7.5 fL (7.4-10.4); Platelet Count 270 10^3/uL (150-450); Red Blood Count 3.99 10^6 /uL (3.70-4.87); Red Cell Distribution Width 15 % (10-15); White Blood Count 8.9 10^3/uL (3.5-10.8)
[2021-07-20 08:54] LABS: Calcium 8.6 mg/dL (8.6-10.3); EGFR African American 74.2 (>60); EGFR Non-African American 61.3 (>60)
[2021-07-20 09:24] LABS: Free T4 1.18 ng/dL (0.61-1.12)
[2021-07-21] MEDS: ceFAZolin 1 GM ADVAN 1 GM in NS 0.9% 50 ML 50 ML IVPB SCH ×3 (06:07→22:04)
[2021-07-21] MEDS: Enoxaparin 40 MG/0.4 ML SYR SUBCUT SCH (09:13)
[2021-07-21] MEDS: Pitavastatin 2 mg TAB (NF) PO SCH (09:13)
[2021-07-21] MEDS: Potassium Chlor 10 meq TAB PO SCH ×3 (09:13→22:00)
[2021-07-21] MEDS: Polyethylene Glycol 3350 17 GM PACKET PO PRN (09:17)
[2021-07-21 09:46] LABS: ABS Basophils 0.1 10^3/ul (0-0.2); ABS Eosinophils 0.4 10^3/ul (0-0.6); ABS Lymphocytes 1.8 10^3/ul (1.0-4.8); ABS Monocytes 0.7 10^3/ul (0-0.8); ABS Neutrophils 3.7 10^3/ul (1.5-7.7); Eosinophil % 6.3 %; Hematocrit 39 % (35-47); Hemoglobin 13.3 g/dL (12.0-16.0); Lymphocyte % 26.6 %; Mean Corpuscular HGB Conc 34 g/dL (31-36); Mean Corpuscular Hemoglobin 31 pg (27-31); Mean Corpuscular Volume 91 fL (80-97); Mean Platelet Volume 7.2 fL (7.4-10.4); Nucleated Red Blood Cells % 0.1; Platelet Count 305 10^3/uL (150-450); Red Cell Distribution Width 15 % (10-15); White Blood Count 6.8 10^3/uL (3.5-10.8)
[2021-07-21 10:01] LABS: Calcium 8.5 mg/dL (8.6-10.3); Potassium 4.1 mmol/L (3.5-5.0)
[2021-07-21 10:06] LABS: EGFR African American 74.2 (>60); EGFR Non-African American 61.3 (>60)
[2021-07-21 14:05] LABS: C Reactive Protein 113.32 mg/L (<8.01)
[2021-07-21] MEDS: HYDROcodone/ACETAMIN 5/325 mg TAB PO PRN (21:59)
[2021-07-22] MEDS: Benzocaine (DENTAL) 10% TOP.GEL TOPICAL PRN ×2 (00:01→12:47)
[2021-07-22] MEDS: Enoxaparin 40 MG/0.4 ML SYR SUBCUT SCH (08:18)
[2021-07-22] MEDS: HYDROcodone/ACETAMIN 5/325 mg TAB PO PRN ×2 (08:19→18:23)
[2021-07-22] MEDS: Potassium Chlor 10 meq TAB PO SCH ×3 (08:19→19:19)
[2021-07-22] MEDS: Pitavastatin 2 mg TAB (NF) PO SCH (08:21)
[2021-07-22] MEDS: Polyethylene Glycol 3350 17 GM PACKET PO PRN (12:47)
[2021-07-22 17:52] LABS: Anaplasma phagocytophilum Negative (Negative); B. miyamotoi PCR, B Negative (Negative); Babesia divergens/MO-1 Negative (Negative); Babesia ducani Negative (Negative); Ehrlichia chaffeensis Negative (Negative); Ehrlichia ewingii/canis Negative (Negative); Ehrlichia muris eauclairensis Negative (Negative)
[2021-07-23] MEDS: HYDROcodone/ACETAMIN 5/325 mg TAB PO PRN ×2 (00:03→12:00)
[2021-07-23] MEDS: Enoxaparin 40 MG/0.4 ML SYR SUBCUT SCH (08:07)
[2021-07-23] MEDS: Potassium Chlor 10 meq TAB PO SCH (08:09)
[2021-07-23] MEDS: Pitavastatin 2 mg TAB (NF) PO SCH (08:13)
[2021-07-23 09:58] VITALS: BP 114/62
[2021-07-23 15:31] LABS: Albumin 2.6 g/dL (3.4-4.7); Albumin/Globulin Ratio 0.97; Gamma Globulin 0.7 g/dL (0.6-1.6); Total Protein(PEP) 5.3 g/dL (6.3 - 7.9)
== END 2021-07-23 12:30 | disposition home or self-care (01) | DRG 563 ==
LOC: ED 17:24 → SUATTDRO 23:12 → MED 23:12
PROVIDERS: ADMIT Hospitalist; ATTEND Internal Medicine